=== PATIENT | female | born 1980 | race Caucasian/White ===

== ENCOUNTER → 2016-11-19 | Outpatient (CLI) | payer OTHER ==
[2016-11-19 17:01] LABS: BASO % 1 % (0-3); EOS % 2 % (0-3); HEMATOCRIT 39.7 % (36.0-47.0); HEMOGLOBIN 13.9 g/dL (12.0-15.5); LYMPH # 1.8 x10^3/uL (1.0-4.8); LYMPH % 28 % (24-48); MEAN CORPUSCULAR HEMOGLOBIN 33 pg (25-35); MEAN CORPUSCULAR HGB CONC 35 g/dL (31-37); MEAN CORPUSCULAR VOLUME 93 fL (79-100); MONO % 7 % (0-9); NEUT % 62 % (31-73); PLATELET COUNT 262 x10^3/uL (140-400); RED BLOOD COUNT 4.27 x10^6/uL (3.50-5.40); RED CELL DISTRIBUTION WIDTH 13.5 % (11.5-14.5); WHITE BLOOD COUNT 6.4 x10^3/uL (4.0-11.0)
[2016-11-19 17:05] LABS: BILIRUBIN,URINE NEGATIVE (NEG); GLUCOSE,URINE NEGATIVE (NEG); NITRITE,URINE NEGATIVE (NEG); PROTEIN,URINE NEGATIVE (NEG-TRACE); UROBILINOGEN,URINE 0.2 mg/dL (0.2 mg/dL)
[2016-11-19 17:29] LABS: RBC,URINE 0 /HPF (0-2); SQUAMOUS EPITHELIAL CELL,UR OCC /LPF; WBC,URINE OCC /HPF (0-4)
[2016-11-20 04:21] LABS: PROGESTERONE 8.9 ng/mL (.)
[2016-11-21 22:07] LABS: RPR REFLEX Non Reactive (Non Reactive)
== END | disposition home or self-care (01) ==
LOC: LAB 16:18
PROVIDERS: ATTEND Family Medicine
DX: Z34.90 Encounter for supervision of normal pregnancy, unspecified, unspecified trimester (principal); E03.9 Hypothyroidism, unspecified
CPT/HCPCS: 81001; 84144; 84443; 85027; 86593; 86703; 86762; 86850; 86900; 86901; 87086

== ENCOUNTER → 2016-11-29 | Outpatient (CLI) | payer OTHER ==
[2016-11-29 12:25] LABS: NEG OBC UR NEG; POS OBC UR POS
== END | disposition home or self-care (01) ==
LOC: LAB 11:37
PROVIDERS: ATTEND Family Medicine
DX: O09.521 Supervision of elderly multigravida, first trimester (principal); O99.281 Endocrine, nutritional and metabolic diseases complicating pregnancy, first trimester; E03.9 Hypothyroidism, unspecified; Z3A.00 Weeks of gestation of pregnancy not specified
CPT/HCPCS: 36415; 81025; 84144

== ENCOUNTER → 2016-11-29 | Outpatient (CLI) | payer OTHER ==
--- NOTE | 2016-11-29 11:42 | KCIC ---
INDICATION: Supervision of possible early COMPARISON: None. TECHNIQUE: Grayscale and color ultrasound images uterus and adnexa. Transabdominal and transvaginal images obtained. FINDINGS: Uterus: 95 x 52 x 49 mm. Endometrial Stripe: 8 mm. The maternal ovaries are not well seen. Gas obscures large portions of the adnexa. IMPRESSION: 1. No intrauterine is seen at this time. Either a follow-up ultrasound or serial hCG could be obtained to evaluate for development of a gestational sac and pole. Electronically signed by: Rudy Ugarte MD (11/29/2016 11:38 AM) [place] [id number]
== END | disposition home or self-care (01) ==
LOC: KCIC US 10:47
PROVIDERS: ATTEND Family Medicine
DX: Z34.90 Encounter for supervision of normal pregnancy, unspecified, unspecified trimester (principal)
CPT/HCPCS: 76801

== ENCOUNTER → 2016-12-06 | Outpatient (CLI) | payer OTHER ==
[~2016-12-06] VITALS: Ht 167.6 cm; Wt 83.5 kg
[~2016-12-06] MED LIST: METHOTREXATE SODIUM 50 MG/2 ML VIAL IM ONE
[2016-12-06 14:51] VITALS: BP 116/73
== END | disposition home or self-care (01) ==
LOC: OPS 14:31
PROVIDERS: ATTEND Family Medicine
DX: O00.90 Unspecified ectopic pregnancy without intrauterine pregnancy (principal)
CPT/HCPCS: 96372

== ENCOUNTER → 2016-12-06 | Outpatient (CLI) | payer OTHER ==
--- NOTE | 2016-12-06 13:51 | KCIC ---
OB ultrasound less than 14 weeks to include transabdominal and transvaginal imaging 12/06/2016 CLINICAL HISTORY: First trimester with vaginal bleeding. TECHNIQUE: Using the distended urinary bladder as a sonographic window, a real-time ultrasound examination of the pelvis was performed. Additionally in an attempt to better evaluate the uterus and adnexa, a transvaginal ultrasound study was performed. Multiple images were obtained. FINDINGS: Comparison study is dated 11/29/2016. The uterus is within normal limits in size and echogenicity. It measures 11 x 6.1 x 4. 3 cm in longitudinal, transverse, and AP dimensions. No gestational sac seen within the uterus. The endometrial echo complex is slightly heterogeneous. It measures 1.9 cm in thickness. The right ovary is normal in size. It measures 2.3 x 2.0 x 2.7 cm in size. An oval-shaped anechoic structure is seen within the right ovary which likely represents a corpus luteum. It measures 1.7 cm in diameter. The left ovary is normal in size and echogenicity. It measures 1.8 x 1.1 x 1.8 cm in size. Within the right adnexa a rounded oval-shaped structure is seen which resembles a gestational sac. Within this gestational sac an embryonic pole is seen which has a CRL of 4.9 mm. This corresponds to an estimated gestational age by ultrasound of 6 weeks 2 days. Embryonic cardiac activity is seen with a heart rate of 119 beats per minutes. The entirety of this adnexal mass measures 2 cm in greatest diameter. The gestational sac measures 1.6 cm in greatest diameter. These findings are consistent with an ectopic . A small amount of free fluid is seen within the pelvis. Impression: Findings are seen consistent with living ectopic within the right adnexa as outlined above. These findings were discussed with Dr. Chawla. Electronically signed by: Trevor Smith MD (12/06/2016 1:47 PM) [id number]
== END | disposition home or self-care (01) ==
LOC: KCIC US 12:02
PROVIDERS: ATTEND Family Medicine
DX: O20.9 Hemorrhage in early pregnancy, unspecified (principal); Z87.59 Personal history of other complications of pregnancy, childbirth and the puerperium; Z3A.14 14 weeks gestation of pregnancy
CPT/HCPCS: 76801; 76817

== ENCOUNTER 2016-12-15 17:02 | Inpatient (IN) | payer OTHER ==
[~2016-12-15] VITALS: Ht 167.6 cm; Wt 81.2 kg
[2016-12-15 19:50] VITALS: BP 117/68
[2016-12-15] MEDS ORDERED: fentaNYL PF VIAL 100 MCG/2 ML VIAL IV PRN (20:30)
[2016-12-15 21:36] LABS: BASO % 1 % (0-3); EOS % 2 % (0-3); HEMATOCRIT 34.8 % (36.0-47.0); LYMPH # 2.1 x10^3/uL (1.0-4.8); LYMPH % 25 % (24-48); MEAN CORPUSCULAR HEMOGLOBIN 33 pg (25-35); MEAN CORPUSCULAR HGB CONC 34 g/dL (31-37); MEAN CORPUSCULAR VOLUME 96 fL (79-100); MONO % 7 % (0-9); NEUT % 66 % (31-73); PLATELET COUNT 177 x10^3/uL (140-400); RED BLOOD COUNT 3.62 x10^6/uL (3.50-5.40); RED CELL DISTRIBUTION WIDTH 13.5 % (11.5-14.5); WHITE BLOOD COUNT 8.6 x10^3/uL (4.0-11.0)
[2016-12-15 21:56] LABS: ALBUMIN 3.4 g/dL (3.4-5.0); ALBUMIN/GLOBULIN RATIO 1.3 (1.0-1.7); CALCIUM 8.6 mg/dL (8.5-10.1); CREATININE 0.8 mg/dL (0.6-1.0); GFR 80.7; POTASSIUM 3.1 mmol/L (3.5-5.1); TOTAL BILIRUBIN 0.2 mg/dL (0.2-1.0); TOTAL PROTEIN 6.1 g/dL (6.4-8.2)
[2016-12-15] MEDS: LEVOTHYROXINE 112 MCG TABLET PO SCH (22:07)
[2016-12-15] MEDS ORDERED: ONDANSETRON PF 4 MG/2 ML VIAL. IV PRN (22:30)
[2016-12-16] VITALS (10 sets, daily range): BP systolic 93–111; BP diastolic 54–66
[2016-12-16] MEDS ORDERED: LEVO112T4 PO (05:15)
[2016-12-16] MEDS ORDERED: BUPR300T4 PO (05:15)
[2016-12-16] MEDS: IV RINGERS,LACTATED 1000ML 1,000 ML IV SCH ×2 (05:50→11:56)
[2016-12-16] MEDS ORDERED: POTASSIUM CHLORIDE 20 MEQ TABLET.ER. PO ONE (07:30)
--- NOTE | 2016-12-16 07:43 | PDOC1 ---
OB - History Hx of Present Care: Limited Care Ultrasounds: Abnormal US findings Obstetrical Complications: Other (AMA, Ectopic ) Medical Complications: Psychiatric (Depression), Other (Hypothyroidism) Past Family/Social History * Past Medical, Surgical, Family and Obstetric Histories reviewed from chart. Blood Type: A+ Rubella: Immune RPR/VDRL: Negative GBS Status: Negative HBsAG: Negative OB - Chief Complaint & HPI Date of Admission: Date of Admission: Dec 15, 2016 at 19:42 Chief Complaint/History : 3 Para: 1 EDC: Jul 21, 2017 EGA: 9w Reason for admission: other (ectopic ) Admission Nurse Assessment Rev: No Problems: OB - Admission Exam Physical Exam Vitals: VS - Last 72 Hours, by Label Date Time Temp Pulse Resp B/P (MAP) Pulse Ox O2 Delivery O2 Flow Rate FiO2 12/16/16 05:30 98.1 60 18 109/65 (80) 100 Room Air 98.1 12/16/16 00:05 99.5 58 18 111/66 (81) 98 Room Air 99.5 12/15/16 19:50 98.2 76 18 117/68 (84) 98 Room Air 98.2 HEENT: Normal, Nasal Mucosa Normal, Oropharynx Normal, Moist Membranes, Fontanelles Normal Heart: Regular Rate, No Murmurs Lungs: Clear, Equal Abdomen: Gravid Extremities: Normal Pulses, No tenderness or swelling Reflexes: Normal Membranes: Intact A/P Pt is a 36yo at 9wga admitted for ectopic 1)Ectopic - s/p failed methotrexate treatment. Dr. Faria has been consulted and is planning on bringing her to the OR this afternoon 2)Hypothyroidism- pt continued on her Levothyroxine. Will drop back down to prepregnancy dose on discharge 3)Depression- continued on Buproprion XR Problems: MJ CHAVARRIA MD Dec 16, 2016 07:43
[2016-12-16] MEDS: buPROPion XL 150 MG TAB.ER.24H. PO SCH (09:00)
[2016-12-16] MEDS ORDERED: LIDOCAINE 2% PF Vial for OR 5 ML VIAL. ONE (11:35)
[2016-12-16] MEDS ORDERED: MIDAZOLAM HCL/PF 2 MG/2 ML VIAL. ONE (11:35)
[2016-12-16] MEDS ORDERED: DEXAMETHASONE SOD PHOS 20 MG/5 ML VIAL. ONE (11:35)
[2016-12-16] MEDS ORDERED: PROPOFOL 20 ML IV ONE (11:35)
[2016-12-16] MEDS ORDERED: ONDANSETRON PF 4 MG/2 ML VIAL. ONE (11:35)
[2016-12-16] MEDS ORDERED: fentaNYL PF VIAL 100 MCG/2 ML VIAL ONE ×3 (11:36→14:50)
[2016-12-16] MEDS ORDERED: SUCCINYLCHOLINE 200 MG/10 ML VIAL. ONE (11:36)
[2016-12-16] MEDS ORDERED: SURGICEL HEMOSTAT 4X8 EACH. ONE (12:08)
[2016-12-16] MEDS ORDERED: BUPIVAC MPF-EPI 0.5%-1:200000 30 ML VIAL. ONE ×2 (12:08→12:21)
[2016-12-16] MEDS ORDERED: CLINDAMYCIN 900MG PREMIX 50 ML IV ONE (12:15)
[2016-12-16] MEDS ORDERED: FAMOTIDINE 20 MG/2 ML VIAL ONE (12:29)
[2016-12-16] MEDS ORDERED: GLYCOPYRROLATE 1 MG/5 ML VIAL. ONE (13:05)
[2016-12-16] MEDS ORDERED: NEOSTIGMINE 10 MG/10 ML VIAL. ONE (13:05)
[2016-12-16] MEDS ORDERED: EPINEPHrine 1 MG/ML VIAL ONE (13:16)
[2016-12-16] MEDS ORDERED: SEVOFLURANE > 120 MINUTES. IH ONE (13:44)
[2016-12-16] MEDS ORDERED: ROCURONIUM 50 MG/5 ML VIAL. ONE (13:50)
[2016-12-16] MEDS ORDERED: MORPHINE SULFATE 10 MG/ML VIAL. ONE (14:15)
--- NOTE | 2016-12-16 14:22 | PDOC ---
BRIEF OPERATIVE NOTE Pre-Op Diagnosis Right Ectopic Post-Op Diagnosis Right [place] Procedure Performed Open Lap Right Salpingectomy Dx [facility] [place] Surgeon Dr. Faria Anesthesia Type: General Blood Loss 50 ml Specimens Obtained Right fallopian tube with ectopic Findings right cornua involving right fallopian tube; nml left fallopian tube and nml ovaries akiko. Complications none JOY FARIA Jr, MD Dec 16, 2016 14:22
[2016-12-16] MEDS ORDERED: CALCIUM CARBONATE 500 MG TAB.CHEW PO PRN (14:30)
[2016-12-16] MEDS ORDERED: diphenhydrAMINE HCL 25 MG CAPSULE PO PRN (14:30)
[2016-12-16] MEDS ORDERED: ZOLPIDEM 5 MG TABLET. PO PRN (14:30)
[2016-12-16] MEDS ORDERED: PROCHLORPERAZINE 10 MG/2 ML VIAL. IV PRN (14:30)
[2016-12-16] MEDS ORDERED: KETOROLAC TROMETHAMINE 30 MG/ML INJ. IV PRN (14:30)
[2016-12-16] MEDS ORDERED: ONDANSETRON PF 4 MG/2 ML VIAL. IV PRN (14:30)
[2016-12-16] MEDS ORDERED: DEXTROSE 50% 25 GM / 50ML DISP.SYRIN. IV PRN (14:30)
[2016-12-16] MEDS ORDERED: diphenhydrAMINE 50 MG/ML VIAL IV PRN (14:30)
[2016-12-16] MEDS ORDERED: 0.9 % SODIUM CHLORIDE 10 ML DISP.SYRIN. IV PRN (14:30)
[2016-12-16] MEDS: GABAPENTIN 300 MG CAPSULE. PO SCH ×2 (15:00→22:10)
[2016-12-16] MEDS: oxyCODONE/APAP 5/325 1 TAB TABLET PO PRN ×2 (17:49→22:35)
[2016-12-16] MEDS: LEVOTHYROXINE 112 MCG TABLET PO SCH (22:11)
[2016-12-17 00:05] VITALS: BP 97/51
[2016-12-17] MEDS: oxyCODONE/APAP 5/325 1 TAB TABLET PO PRN ×5 (02:46→21:57)
[2016-12-17 04:36] LABS: BASO % 0 % (0-3); EOS % 0 % (0-3); HEMOGLOBIN 11.2 g/dL (12.0-15.5); LYMPH # 1.1 x10^3/uL (1.0-4.8); LYMPH % 7 % (24-48); MEAN CORPUSCULAR HEMOGLOBIN 33 pg (25-35); MEAN CORPUSCULAR HGB CONC 34 g/dL (31-37); MEAN CORPUSCULAR VOLUME 97 fL (79-100); MONO % 6 % (0-9); NEUT % 87 % (31-73); PLATELET COUNT 167 x10^3/uL (140-400); RED BLOOD COUNT 3.41 x10^6/uL (3.50-5.40); RED CELL DISTRIBUTION WIDTH 13.5 % (11.5-14.5); WHITE BLOOD COUNT 15.6 x10^3/uL (4.0-11.0)
[2016-12-17 04:48] VITALS: BP 90/50
--- NOTE | 2016-12-17 08:05 | PDOC ---
SUBJECTIVE Subjective Pt doing "okay". Pain currently at a /10. Denies nausea. No flatus. Urinating has been a little difficult but she has been able to do it. OBJECTIVE Vital Signs Vital Signs Date Time Temp Pulse Resp B/P (MAP) Pulse Ox O2 Delivery O2 Flow Rate FiO2 12/17/16 04:48 98.2 69 16 90/50 (63) 98 98.2 12/17/16 03:46 Room Air 12/17/16 02:46 Room Air 12/17/16 00:05 97.8 60 16 97/51 (66) 97 97.8 12/16/16 22:35 Room Air 12/16/16 19:46 97.6 57 16 95/54 (68) 99 Room Air 97.6 12/16/16 19:30 Room Air 12/16/16 17:50 98.0 53 18 95/54 (68) 99 Room Air 98.0 12/16/16 17:49 Room Air 12/16/16 17:15 61 97/54 (68) 12/16/16 16:45 55 16 93/54 (67) 98 Room Air 12/16/16 16:15 59 18 94/54 (67) 99 Room Air 12/16/16 15:55 97.9 54 16 102/57 (72) 98 Room Air 97.9 12/16/16 15:40 97.8 53 16 107/64 (78) 98 Room Air 97.8 12/16/16 15:20 78 20 105/65 98 Nasal Cannula 2 12/16/16 15:09 54 20 97/50 99 Room Air 12/16/16 15:05 55 20 98/55 100 Room Air 12/16/16 14:52 22 99 Simple Mask 12/16/16 14:50 61 20 98/55 100 Simple Mask 10 12/16/16 14:35 Mask 10 12/16/16 14:35 98.3 77 20 113/77 100 Simple Mask 10 98.3 12/16/16 11:50 98.6 59 14 108/64 98 Room Air 98.6 12/16/16 09:45 98.2 54 18 109/57 (74) Room Air 98.2 I & O Intake and Output 12/17/16 07:00 Intake Total 1950 ml Output Total 80 ml Balance 1870 ml IV Total 1950 ml Output Urine Total 30 ml Estimated Blood Loss 50 ml # Voids 4 PHYSICAL EXAM Physical Exam GENERAL: NAD, AOx3, slightly diaphoretic HEENT: Normal, Nasal Mucosa Normal, Oropharynx Normal, Moist Membranes, Fontanelles Normal Heart: Regular Rate, No Murmurs Lungs: Clear, Equal Abdomen: incisions C/D/I Extremities: Normal Pulses, No tenderness or swelling Nuero: CN2-12 GI ASSESSMENT/PLAN Assessment/Plan Pt is a 36yo at 9wga admitted for ectopic 1)Ectopic - s/p failed methotrexate treatment. Dr. Faria is following ; pt is now s/p open right salpingectomy. 2)Hypothyroidism- pt continued on her Levothyroxine. Will drop back down to prepregnancy dose on discharge of 75mcg 3)Depression- continued on Buproprion XR 4)Leukocytosis- without fever. Likely reactive. CTM Problems: COMMENT Lab Laboratory Tests Test 12/17/16 04:00 White Blood Count 15.6 x10^3/uL (4.0-11.0) Red Blood Count 3.41 x10^6/uL (3.50-5.40) Hemoglobin 11.2 g/dL (12.0-15.5) Hematocrit 33.0 % (36.0-47.0) Mean Corpuscular Volume 97 fL (79-100) Mean Corpuscular Hemoglobin 33 pg (25-35) Mean Corpuscular Hemoglobin Concent 34 g/dL (31-37) Red Cell Distribution Width 13.5 % (11.5-14.5) Platelet Count 167 x10^3/uL (140-400) Neutrophils (%) (Auto) 87 % (31-73) Lymphocytes (%) (Auto) 7 % (24-48) Monocytes (%) (Auto) 6 % (0-9) Eosinophils (%) (Auto) 0 % (0-3) Basophils (%) (Auto) 0 % (0-3) Neutrophils # (Auto) 13.5 x10^3uL (1.8-7.7) Lymphocytes # (Auto) 1.1 x10^3/uL (1.0-4.8) Monocytes # (Auto) 0.9 x10^3/uL (0.0-1.1) Eosinophils # (Auto) 0.0 x10^3/uL (0.0-0.7) Basophils # (Auto) 0.0 x10^3/uL (0.0-0.2) MJ CHAVARRIA MD Dec 17, 2016 08:05
[2016-12-17] MEDS: SIMETHICONE 80 MG TAB.CHEW PO PRN ×4 (08:12→21:57)
[2016-12-17] MEDS: buPROPion XL 150 MG TAB.ER.24H. PO SCH (08:13)
--- NOTE | 2016-12-17 09:03 | PDOC ---
SURGICAL PROGRESS NOTE Subjective Pt. feeling well. Pain controlled. Pt. ambulating, tolerating regular diet and voiding without difficulty. Vital Signs Vital Signs Date Time Temp Pulse Resp B/P (MAP) Pulse Ox O2 Delivery O2 Flow Rate FiO2 12/17/16 08:12 18 Room Air 12/17/16 04:48 98.2 69 90/50 (63) 98 98.2 12/16/16 15:20 2 I&O Intake and Output 12/17/16 07:00 Intake Total 1950 ml Output Total 80 ml Balance 1870 ml IV Total 1950 ml Output Urine Total 30 ml Estimated Blood Loss 50 ml # Voids 4 PATIENT HAS A ACOSTA: No General: Alert, Oriented X3, Cooperative HEENT: Atraumatic Lungs: Clear to auscultation Heart: Regular rate Abdomen: Normal bowel sounds, Soft, No masses Psych/Mental Status: Mental status NL Labs Laboratory Tests Test 12/15/16 21:20 12/15/16 21:25 12/17/16 04:00 White Blood Count 8.6 x10^3/uL (4.0-11.0) 15.6 x10^3/uL (4.0-11.0) Red Blood Count 3.62 x10^6/uL (3.50-5.40) 3.41 x10^6/uL (3.50-5.40) Hemoglobin 12.0 g/dL (12.0-15.5) 11.2 g/dL (12.0-15.5) Hematocrit 34.8 % (36.0-47.0) 33.0 % (36.0-47.0) Mean Corpuscular Volume 96 fL (79-100) 97 fL (79-100) Mean Corpuscular Hemoglobin 33 pg (25-35) 33 pg (25-35) Mean Corpuscular Hemoglobin Concent 34 g/dL (31-37) 34 g/dL (31-37) Red Cell Distribution Width 13.5 % (11.5-14.5) 13.5 % (11.5-14.5) Platelet Count 177 x10^3/uL (140-400) 167 x10^3/uL (140-400) Neutrophils (%) (Auto) 66 % (31-73) 87 % (31-73) Lymphocytes (%) (Auto) 25 % (24-48) 7 % (24-48) Monocytes (%) (Auto) 7 % (0-9) 6 % (0-9) Eosinophils (%) (Auto) 2 % (0-3) 0 % (0-3) Basophils (%) (Auto) 1 % (0-3) 0 % (0-3) Neutrophils # (Auto) 5.7 x10^3uL (1.8-7.7) 13.5 x10^3uL (1.8-7.7) Lymphocytes # (Auto) 2.1 x10^3/uL (1.0-4.8) 1.1 x10^3/uL (1.0-4.8) Monocytes # (Auto) 0.6 x10^3/uL (0.0-1.1) 0.9 x10^3/uL (0.0-1.1) Eosinophils # (Auto) 0.2 x10^3/uL (0.0-0.7) 0.0 x10^3/uL (0.0-0.7) Basophils # (Auto) 0.0 x10^3/uL (0.0-0.2) 0.0 x10^3/uL (0.0-0.2) Sodium Level 139 mmol/L (136-145) Potassium Level 3.1 mmol/L (3.5-5.1) Chloride Level 103 mmol/L (98-107) Carbon Dioxide Level 26 mmol/L (21-32) Anion Gap 10 (6-14) Blood Urea Nitrogen 11 mg/dL (7-20) Creatinine 0.8 mg/dL (0.6-1.0) Estimated GFR (Cockcroft-Gault) 80.7 BUN/Creatinine Ratio 14 (6-20) Glucose Level 96 mg/dL (70-99) Calcium Level 8.6 mg/dL (8.5-10.1) Total Bilirubin 0.2 mg/dL (0.2-1.0) Aspartate Amino Transf (AST/SGOT) 19 U/L (15-37) Alanine Aminotransferase (ALT/SGPT) 22 U/L (14-59) Alkaline Phosphatase 44 U/L (46-116) Total Protein 6.1 g/dL (6.4-8.2) Albumin 3.4 g/dL (3.4-5.0) Albumin/Globulin Ratio 1.3 (1.0-1.7) Laboratory Tests Test 12/17/16 04:00 White Blood Count 15.6 x10^3/uL (4.0-11.0) Red Blood Count 3.41 x10^6/uL (3.50-5.40) Hemoglobin 11.2 g/dL (12.0-15.5) Hematocrit 33.0 % (36.0-47.0) Mean Corpuscular Volume 97 fL (79-100) Mean Corpuscular Hemoglobin 33 pg (25-35) Mean Corpuscular Hemoglobin Concent 34 g/dL (31-37) Red Cell Distribution Width 13.5 % (11.5-14.5) Platelet Count 167 x10^3/uL (140-400) Neutrophils (%) (Auto) 87 % (31-73) Lymphocytes (%) (Auto) 7 % (24-48) Monocytes (%) (Auto) 6 % (0-9) Eosinophils (%) (Auto) 0 % (0-3) Basophils (%) (Auto) 0 % (0-3) Neutrophils # (Auto) 13.5 x10^3uL (1.8-7.7) Lymphocytes # (Auto) 1.1 x10^3/uL (1.0-4.8) Monocytes # (Auto) 0.9 x10^3/uL (0.0-1.1) Eosinophils # (Auto) 0.0 x10^3/uL (0.0-0.7) Basophils # (Auto) 0.0 x10^3/uL (0.0-0.2) Assessment/Plan A: POD#1 s/p Open mini lap for RIght cornual ectopic and Dx HSC P: Continue post op care. Plan for d/c home tomorrow. Problems: JOY GREGORY Jr, MD Dec 17, 2016 09:03
[2016-12-17 10:29] LABS: PLT ESTIMATE ADEQUATE (ADEQUATE)
[2016-12-17 11:00] VITALS: BP 83/45
[2016-12-17 15:00] VITALS: BP 101/59
[2016-12-17] MEDS: GABAPENTIN 300 MG CAPSULE. PO SCH (15:13)
[2016-12-17] MEDS: DOCUSATE SODIUM 100 MG CAPSULE. PO PRN ×2 (15:13→21:56)
[2016-12-17 20:50] VITALS: BP 104/60
[2016-12-17] MEDS: LEVOTHYROXINE 112 MCG TABLET PO SCH (21:57)
[2016-12-18 03:00] VITALS: BP 105/56
[2016-12-18] MEDS: oxyCODONE/APAP 5/325 1 TAB TABLET PO PRN ×4 (03:17→14:16)
[2016-12-18 05:41] LABS: BASO % 0 % (0-3); EOS % 2 % (0-3); HEMATOCRIT 30.1 % (36.0-47.0); HEMOGLOBIN 10.9 g/dL (12.0-15.5); LYMPH # 2.2 x10^3/uL (1.0-4.8); LYMPH % 29 % (24-48); MEAN CORPUSCULAR HEMOGLOBIN 34 pg (25-35); MEAN CORPUSCULAR HGB CONC 36 g/dL (31-37); MEAN CORPUSCULAR VOLUME 95 fL (79-100); MONO % 7 % (0-9); NEUT % 62 % (31-73); PLATELET COUNT 154 x10^3/uL (140-400); RED BLOOD COUNT 3.16 x10^6/uL (3.50-5.40); RED CELL DISTRIBUTION WIDTH 14.2 % (11.5-14.5); WHITE BLOOD COUNT 7.8 x10^3/uL (4.0-11.0)
[2016-12-18] MEDS: DOCUSATE SODIUM 100 MG CAPSULE. PO PRN (07:38)
[2016-12-18] MEDS: SIMETHICONE 80 MG TAB.CHEW PO PRN (07:39)
[2016-12-18 08:00] VITALS: BP 97/58
[2016-12-18] MEDS: buPROPion XL 150 MG TAB.ER.24H. PO SCH (09:20)
--- NOTE | 2016-12-18 09:25 | PDOC ---
SURGICAL PROGRESS NOTE Subjective Pt. feeling well. Pain controlled. Pt. ambulating, voiding and tolerating regular diet. Vital Signs Vital Signs Date Time Temp Pulse Resp B/P (MAP) Pulse Ox O2 Delivery O2 Flow Rate FiO2 12/18/16 09:21 18 Room Air 12/18/16 08:00 97.9 66 97/58 (71) 98 97.9 I&O Intake and Output 12/18/16 07:00 Intake Total 1140 ml Balance 1140 ml Intake Oral 1140 ml # Voids 2 PATIENT HAS A ACOSTA: No General: Alert, Oriented X3, Cooperative HEENT: Atraumatic Lungs: Clear to auscultation Heart: Regular rate Abdomen: Normal bowel sounds, Soft, No masses Psych/Mental Status: Mental status NL Labs Laboratory Tests Test 12/17/16 04:00 12/18/16 05:00 White Blood Count 15.6 x10^3/uL (4.0-11.0) 7.8 x10^3/uL (4.0-11.0) Red Blood Count 3.41 x10^6/uL (3.50-5.40) 3.16 x10^6/uL (3.50-5.40) Hemoglobin 11.2 g/dL (12.0-15.5) 10.9 g/dL (12.0-15.5) Hematocrit 33.0 % (36.0-47.0) 30.1 % (36.0-47.0) Mean Corpuscular Volume 97 fL (79-100) 95 fL (79-100) Mean Corpuscular Hemoglobin 33 pg (25-35) 34 pg (25-35) Mean Corpuscular Hemoglobin Concent 34 g/dL (31-37) 36 g/dL (31-37) Red Cell Distribution Width 13.5 % (11.5-14.5) 14.2 % (11.5-14.5) Platelet Count 167 x10^3/uL (140-400) 154 x10^3/uL (140-400) Neutrophils (%) (Auto) 87 % (31-73) 62 % (31-73) Lymphocytes (%) (Auto) 7 % (24-48) 29 % (24-48) Monocytes (%) (Auto) 6 % (0-9) 7 % (0-9) Eosinophils (%) (Auto) 0 % (0-3) 2 % (0-3) Basophils (%) (Auto) 0 % (0-3) 0 % (0-3) Neutrophils # (Auto) 13.5 x10^3uL (1.8-7.7) 4.8 x10^3uL (1.8-7.7) Lymphocytes # (Auto) 1.1 x10^3/uL (1.0-4.8) 2.2 x10^3/uL (1.0-4.8) Monocytes # (Auto) 0.9 x10^3/uL (0.0-1.1) 0.6 x10^3/uL (0.0-1.1) Eosinophils # (Auto) 0.0 x10^3/uL (0.0-0.7) 0.2 x10^3/uL (0.0-0.7) Basophils # (Auto) 0.0 x10^3/uL (0.0-0.2) 0.0 x10^3/uL (0.0-0.2) Segmented Neutrophils % 94 % (35-66) Band Neutrophils % 1 % (0-9) Lymphocytes % 5 % (24-48) Platelet Estimate Adequate (ADEQUATE) Laboratory Tests Test 12/18/16 05:00 White Blood Count 7.8 x10^3/uL (4.0-11.0) Red Blood Count 3.16 x10^6/uL (3.50-5.40) Hemoglobin 10.9 g/dL (12.0-15.5) Hematocrit 30.1 % (36.0-47.0) Mean Corpuscular Volume 95 fL (79-100) Mean Corpuscular Hemoglobin 34 pg (25-35) Mean Corpuscular Hemoglobin Concent 36 g/dL (31-37) Red Cell Distribution Width 14.2 % (11.5-14.5) Platelet Count 154 x10^3/uL (140-400) Neutrophils (%) (Auto) 62 % (31-73) Lymphocytes (%) (Auto) 29 % (24-48) Monocytes (%) (Auto) 7 % (0-9) Eosinophils (%) (Auto) 2 % (0-3) Basophils (%) (Auto) 0 % (0-3) Neutrophils # (Auto) 4.8 x10^3uL (1.8-7.7) Lymphocytes # (Auto) 2.2 x10^3/uL (1.0-4.8) Monocytes # (Auto) 0.6 x10^3/uL (0.0-1.1) Eosinophils # (Auto) 0.2 x10^3/uL (0.0-0.7) Basophils # (Auto) 0.0 x10^3/uL (0.0-0.2) Assessment/Plan POD#2 s/p Open Lap cornua ectopic and Dx [facility] P: D/c home. F/u in 1 week. Problems: JOY GREGORY Jr, MD Dec 18, 2016 09:25
--- NOTE | 2016-12-18 09:26 | DISCH ---
DISCHARGE INSTRUCTIONS Condition on Discharge Condition on Discharge: Stable Activity After Discharge Activity Instructions for Disc: Activity as tolerated Lifting Instructions after Dis: No heavy lifting Driving Instructions after Dis: Do not drive today Diet after Discharge Diet after Discharge: Regular Contacting the DRHali after DC Call your doctor for: Concerns you may have Follow-Up Follow up with: Dr. Faria in 1 week. JOY FARIA Jr, MD Dec 18, 2016 09:26
[2016-12-18] MEDS ORDERED: DOCU-109 PO (09:27)
[2016-12-18] MEDS ORDERED: IBUP-1060 PO (09:27)
[2016-12-18] MEDS ORDERED: OXYC-323 PO (09:27)
[2016-12-18 11:46] VITALS: BP 108/66
--- NOTE | 2016-12-20 13:50 | PATHOLOGY ---
PATHOLOGY REPORT * * * * * * * * FINAL DIAGNOSIS: Fallopian tube, right salpingectomy: - Ectopic tubal . - Congestion and focal recent hemorrhage. (JPM:chip; 12/20/2016) REPORT ELECTRONICALLY SIGNED BY: Eber Roman M.D. DATE/TIME: 12/20/2016 13:49 * * * * * * * * GROSS PATHOLOGY: The specimen is received in formalin, designated "Kristin Tovar, right tube with ectopic " and consists of a fimbriated fallopian tube that weighs 3.4 g, measures 5.7 cm in length and from 0.6 up to 1.5 cm in diameter. The proximal end is celaya brown, smooth and glistening, the fimbriated end is dark reddish purple. The lumen is pinpoint throughout and shows no gross evidence of hemorrhage or rupture. The specimen is submitted entirely from distal to proximal in cassettes A1 through A3. (JPM; 12/17/16) INITIAL CPT CODE(S): A; 26947 Professional services performed by [facility] [employer] [place] [address] Technical services performed by [facility] [employer] at [address] [place] [address], [facility] [address] [address]. SPECIMEN(S) RECEIVED: A.Right tube with ectopic CLINICAL HISTORY: Tubal PATIENT: KRISTIN TOVAR /AGE: 902/12/1980 (Age: 36) PATIENT #: [id number] ALT CASE #: SPECIMEN COLLECTION DATE: 12/16/2016 SPECIMEN RECEIVED DATE: 12/17/2016 [facility] [place] [address] - PHONE: [phone] * * * END OF REPORT * * *
== END 2016-12-18 14:27 | disposition home or self-care (01) | DRG 777 ==
LOC: 3 NORTH 19:42
PROVIDERS: ADMIT Family Medicine; ATTEND Family Medicine
PROC: 10T20ZZ Resection of Products of Conception, Ectopic, Open Approach (ICD-10-PCS; 2016-12-16)
PROC: 0UT50ZZ Resection of Right Fallopian Tube, Open Approach (ICD-10-PCS; principal; 2016-12-16 13:30)
DX: O00.80 Other ectopic pregnancy without intrauterine pregnancy (principal); O99.281 Endocrine, nutritional and metabolic diseases complicating pregnancy, first trimester; E03.9 Hypothyroidism, unspecified; O99.341 Other mental disorders complicating pregnancy, first trimester; F32.9 Major depressive disorder, single episode, unspecified; D72.829 Elevated white blood cell count, unspecified; O26.891 Other specified pregnancy related conditions, first trimester; Z3A.09 9 weeks gestation of pregnancy
CPT/HCPCS: 36415; 80053; 85007; 85027; 86850; 86900; 86901; 88305; A4215; C1781; C1782; J0171; J0330; J0780; J1100; J1885; J2001; J2250; J2270; J2405; J2704; J2710; J3010; J3490; J7030; J7120; S0028

== ENCOUNTER → 2016-12-15 | Outpatient (CLI) | payer OTHER ==
[2016-12-06 14:51] VITALS: BP 116/73
[~2016-12-15] MED LIST changes: +BUPR300T4 PO; +DOCU-109 PO; +IBUP-1060 PO; +LEVO112T4 PO; -METHOTREXATE SODIUM 50 MG/2 ML VIAL IM ONE; +OXYC-323 PO
--- NOTE | 2016-12-15 14:03 | KCIC ---
OB <14 WKS W/TV Clinical Indication: Ectopic post methotrexate, no vaginal bleeding following methotrexate. Comparison: OB ultrasound, December 06, 2016. TECHNIQUE: Real-time ultrasound imaging of the pelvis using transabdominal and transvaginal window is performed. Findings: Uterus measures 11.2 x 4.9 x 6.5 cm. Endometrial stripe is thickened measuring up to 18 mm. This is unchanged. No intrauterine gestational sac. Left ovary measures 1.8 x 1.9 x 1.3 cm. Right ovary measures 2.6 x 1.9 x 2.2 cm. Probable right corpus luteum measures 1.8 cm. Normal blood flow in the ovaries. Right adnexa ectopic persists. There is gestational sac and pole. Kurten-rump length 1.2 cm, 7 weeks and 2 days. Estimated heart rate 158 bpm. Gestational sac diameter is 1.9 cm, 6 weeks and 6 days. The crown-rump length and the gestational sac diameter have mildly increased. No pelvic or adnexal free fluid is seen. IMPRESSION: 1. Right adnexal ectopic persists. No pelvic free fluid is seen. 2. Small right ovary corpus luteum. Dr. Gomez discussed the results with the patient and her at the conclusion of the ultrasound. Electronically signed by: Iggy Fuller MD (12/15/2016 1:59 PM) [id number]
== END | disposition home or self-care (01) ==
LOC: KCIC US 12:54
PROVIDERS: ATTEND Family Medicine
DX: O00.90 Unspecified ectopic pregnancy without intrauterine pregnancy (principal); Z3A.01 Less than 8 weeks gestation of pregnancy
CPT/HCPCS: 76801; 76817

== ENCOUNTER → 2017-04-05 | Outpatient (CLI) | payer OTHER ==
[~2017-04-05] MED LIST changes: +CONTRAST GIVEN MC PRN; +IOHEXOL 300 MG/ML 50 ML VIAL. INT UTERIN ONE
[2017-04-05 10:48] LABS: NEG OBC UR NEG; POS OBC UR POS
--- NOTE | 2017-04-05 14:20 | RAD ---
EXAM: Hysterosalpingography. HISTORY: Infertility. Prior right adnexal ectopic status post salpingectomy. COMPARISON: None. FINDINGS: The procedure along with its risks and benefits were explained to the patient. She agreed to proceed. A timeout procedure was performed. A speculum examination was performed. The cervix was sterilely prepped with Betadine. A balloon catheter was advanced through the cervix into the endometrial cavity. The balloon was inflated under fluoroscopic control. 5 mL Omnipaque 300 were instilled under fluoroscopic control. 8 fluoroscopic images were obtained. Fluoroscopy time 0.7 minutes. Instrumentation was withdrawn and the findings explained to the patient. There are no bleeding calculations. The endometrial cavity appears normal. A small amount of incidental venous intravasation is noted along the right aspect of the myometrium. The right fallopian tube abruptly cuts off after the isthmus consistent with prior salpingectomy. The left fallopian tube is patent and spills into the peritoneum. IMPRESSION: 1. The right fallopian tube is not patent consistent with prior salpingectomy. The left is patent.
== END | disposition home or self-care (01) ==
LOC: RAD 10:13
PROVIDERS: ATTEND Obstetrics & Gynecology
DX: O00.90 Unspecified ectopic pregnancy without intrauterine pregnancy (principal); N93.8 Other specified abnormal uterine and vaginal bleeding; Z3A.00 Weeks of gestation of pregnancy not specified
CPT/HCPCS: 58340; 74740; 81025; Q9967

== ENCOUNTER → 2017-05-05 | Outpatient (CLI) | payer OTHER ==
[~2017-05-05] MED LIST changes: -CONTRAST GIVEN MC PRN; -IOHEXOL 300 MG/ML 50 ML VIAL. INT UTERIN ONE
[2017-05-05 10:18] LABS: CALCIUM 8.7 mg/dL (8.5-10.1); CREATININE 0.9 mg/dL (0.6-1.0); GFR 70.1; POTASSIUM 4.1 mmol/L (3.5-5.1)
[2017-05-05 10:19] LABS: CHOLESTEROL/HDL RATIO 3.7
== END | disposition home or self-care (01) ==
LOC: LAB 09:39
PROVIDERS: ATTEND Family Medicine
DX: Z00.01 Encounter for general adult medical examination with abnormal findings (principal); E03.9 Hypothyroidism, unspecified
CPT/HCPCS: 36415; 80048; 80061; 84443

== ENCOUNTER → 2017-08-16 | Outpatient (CLI) | payer OTHER ==
[2017-08-16 12:45] LABS: ADD MAN DIFF? NO
[2017-08-16 12:51] LABS: BASO # 0.1 x10^3/uL (0.0-0.2); BASO % 1 % (0-3); EOS # 0.1 x10^3/uL (0.0-0.7); EOS % 2 % (0-3); HEMATOCRIT 41.1 % (36.0-47.0); HEMOGLOBIN 13.8 g/dL (12.0-15.5); LYMPH # 1.7 x10^3/uL (1.0-4.8); LYMPH % 21 % (24-48); MEAN CORPUSCULAR HEMOGLOBIN 32 pg (25-35); MEAN CORPUSCULAR HGB CONC 33 g/dL (31-37); MEAN CORPUSCULAR VOLUME 97 fL (79-100); MONO # 0.6 x10^3/uL (0.0-1.1); MONO % 7 % (0-9); NEUT # 5.7 x10^3uL (1.8-7.7); NEUT % 69 % (31-73); PLATELET COUNT 238 x10^3/uL (140-400); RED BLOOD COUNT 4.25 x10^6/uL (3.50-5.40); RED CELL DISTRIBUTION WIDTH 13.8 % (11.5-14.5); WHITE BLOOD COUNT 8.3 x10^3/uL (4.0-11.0)
[2017-08-16 13:16] LABS: THYROID STIM HORMONE (TSH) 1.315 uIU/mL (0.358-3.74)
== END | disposition home or self-care (01) ==
LOC: LAB 12:28
DX: E03.9 Hypothyroidism, unspecified (principal); N92.6 Irregular menstruation, unspecified
CPT/HCPCS: 36415; 84443; 85025

== ENCOUNTER → 2018-01-06 | Outpatient (CLI) | payer OTHER ==
[~2018-01-06] MED LIST changes: +IOHEXOL 240 MG/ML 50ML VIAL. PO ONE
[2018-01-06] MEDS: IOHEXOL 300 MG/ML 100ML VIAL. IV ONE (10:15)
--- NOTE | 2018-01-06 13:41 | RAD ---
EXAM: CT Abdomen and Pelvis with IV contrast CLINICAL HISTORY: ABD PAIN X1WEEK COMPARISON: none TECHNIQUE: Helical CT of the abdomen and pelvis was performed following the administration of intravenous contrast. Oral contrast was administered. Axial, coronal and sagittal reformatted images were generated. PQRS compliance statement - One or more of the following individualized dose reduction techniques were utilized for this study: 1. Automated exposure control 2. Adjustment of the mA and/or kV according to patient size 3. Use of iterative reconstruction technique FINDINGS: Lower chest: Lung bases are clear. Abdomen and Pelvis: No focal liver lesion. There has been a cholecystectomy. No biliary ductal dilatation. Pancreas is unremarkable. Spleen is normal. Adrenal glands are normal. Symmetric nephrograms. No focal renal lesion. No hydronephrosis. The small and large bowel are normal in caliber. Oral contrast material seen to the level of the hepatic flexure. A cystic structure seen in the right lower quadrant measuring 4.9 x 4.4 cm. No definite peripheral inflammatory change or enhancing capsule is identified. Appendix is normal. No abdominal or pelvic ascites. Uterus is unremarkable. Right adnexal cystic structure likely follicle. Bones: Visualized osseous structures are unremarkable. IMPRESSION: 1. 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 2. No CT findings to account for the patient's abdominal pain. Electronically signed by: Alex Farias MD (01/06/2018 1:38 PM) [id number]
== END | disposition home or self-care (01) ==
LOC: CT 10:01
PROVIDERS: ATTEND Surgery
DX: R10.84 Generalized abdominal pain (principal); Z87.59 Personal history of other complications of pregnancy, childbirth and the puerperium
CPT/HCPCS: 74177; Q9966; Q9967

== ENCOUNTER → 2018-07-26 | Outpatient (CLI) | payer OTHER ==
[~2018-07-26] MED LIST changes: -IOHEXOL 240 MG/ML 50ML VIAL. PO ONE; -OXYC-323 PO; +OXYC1TAB15 PO
[2018-07-26 11:36] LABS: HEMATOCRIT 41.6 % (36.0-47.0); HEMOGLOBIN 13.8 g/dL (12.0-15.5); RED BLOOD COUNT 4.36 x10^6/uL (3.50-5.40); RED CELL DISTRIBUTION WIDTH 13.8 % (11.5-14.5); WHITE BLOOD COUNT 9.9 x10^3/uL (4.0-11.0)
[2018-07-26 11:59] LABS: CALCIUM 8.7 mg/dL (8.5-10.1); CREATININE 0.9 mg/dL (0.6-1.0); GFR 69.7
== END | disposition home or self-care (01) ==
LOC: LAB 11:20
PROVIDERS: ATTEND Family Medicine
DX: Z00.00 Encounter for general adult medical examination without abnormal findings (principal); E03.9 Hypothyroidism, unspecified; E78.5 Hyperlipidemia, unspecified
CPT/HCPCS: 36415; 80048; 80061; 84443; 85027

== ENCOUNTER → 2018-08-31 | Outpatient (CLI) | payer OTHER ==
--- NOTE | 2018-08-31 11:30 | RAD ---
MRI study of the left ankle without contrast Clinical indications: Lateral ankle pain. Sprained left ankle one year ago. COMPARISON STUDY: Radiographic study of the left ankle dated August 29, 2018. At technique: Noncontrast MRI sequences of the left ankle were performed in all 3 planes. FINDINGS: Mild bone marrow edema of the distal lateral fibular epiphysis is seen. No other focus of bone marrow edema is seen. No fracture is evident. No osteochondral abnormality of the dome of talus or the tibial plafond is seen. There is a high-grade partial longitudinal split tear of the peroneus brevis tendon which is abnormally thickened as well. There is moderate tenosynovitis present here. The flexor tendons are intact without tenosynovitis. The extensor tendons are intact without tenosynovitis. The Achilles tendon is intact. Plantar aponeurosis is intact. Tiny plantar spur of the calcaneus is seen. No bone marrow edema or soft tissue edema is seen here. No osseous tarsal coalition is seen. The sinus tarsi is unremarkable and the cervical and talocalcaneal ligaments are intact. The peroneal retinacular ligament and flexor retinacular ligament and extensor retinacular ligament are intact. The distal interosseous ligament and anterior/posterior tibiofibular ligaments and anterior/posterior talofibular ligaments and spring ligament and calcaneofibular ligament and deltoid ligament are intact. Small posterior subtalar joint effusion is seen with mild degenerative spurring of this joint compartment. Small mortise ankle joint effusion is seen. There is mild degenerative spurring of the tibiotalar joint compartment. IMPRESSION: High-grade partial longitudinal split tear of the peroneus brevis tendon with moderate tenosynovitis. There is mild reactive adjacent bone marrow edema of the distal lateral fibular epiphysis. No acute fracture. Electronically signed by: Fran Florian MD (08/31/2018 11:27 AM) [id number]
== END | disposition home or self-care (01) ==
LOC: MRI 09:51
PROVIDERS: ATTEND Orthopaedic Surgery Sports Medicine
DX: S86.312A Strain of muscle(s) and tendon(s) of peroneal muscle group at lower leg level, left leg, initial encounter (principal); M65.872 Other synovitis and tenosynovitis, left ankle and foot; M25.472 Effusion, left ankle; M77.32 Calcaneal spur, left foot; X58.XXXA Exposure to other specified factors, initial encounter; Y93.89 Activity, other specified; Y92.89 Other specified places as the place of occurrence of the external cause; Y99.8 Other external cause status
CPT/HCPCS: 73721